=== PATIENT | female | born 1950 | race Caucasian/White ===

== ENCOUNTER 2020-10-04 12:58 | Outpatient (CLI) | payer MEDICARE, BC, SELFPAY ==
--- NOTE | 2020-10-04 | XR_ITS ---
WS: [id number] SCREENING DEXA SCAN [employer] CLINICAL INFORMATION: POST MENOPAUSE COMPARISON: July 20, 2018 FINDINGS: The L1-L4 bone mineral density measures 1.431 g/cm2. This corresponds to a T score score of 2.1 and Z score of 3.7. Left femoral neck bone mineral density measures 0.971 g/cm2. This corresponds to a T score of -0.3 an d Z score of 1.2. Right femoral neck bone mineral density measures 0.970 g/cm2. This corresponds to a T score -0.3of an d Z score of 1.2. Mean femoral neck bone mineral density measures 0.970 g/cm2. This corresponds to a T score of -0.3 an d Z score of 1.2. XR/XR DEXA axial skeleton* [id number] IMPRESSION: Normal bone mineralization. Patient's FRAX calculated 10 year probability for major osteoporotic fracture i s 23.8 % and osteoporotic hip fracture is 5.7%.
--- NOTE | 2020-10-04 13:07 | MM_ITS ---
WS: [id number] BILATERAL SCREENING DIGITAL MAMMOGRAM WITH CAD HISTORY: SCREENING COMPARISON: 08/13/2019 and 06/05/2018. Bilateral CC and MLO views submitted. Computer aided detection analyzed. Breast composition: There are scattered areas of fibroglandular density. No suspicious masses, microc alcifications or architectural distortion. MM/[place] [id number] IMPRESSION: BI-RADS: 1-Negative FOLLOW UP: 1 Year Follow-up
== END 2020-10-04 12:59 | disposition home or self-care (01) ==
LOC: RADSHAW 13:06
PROVIDERS: PCP Family Medicine; Visit Provider Family Medicine
DX: Z12.31 Encounter for screening mammogram for malignant neoplasm of breast (principal); Z78.0 Asymptomatic menopausal state
CPT/HCPCS: 77067; 77080

== ENCOUNTER 2022-01-10 10:09 | Outpatient (CLI) | payer MEDICARE, BC, SELFPAY ==
--- NOTE | 2022-01-10 10:53 | MM_ITS ---
WS: [id number] Bilateral screening 3D tomosynthesis digital mammogram, 01/10/2022 Clinical Data: SCREENING Comparison: 10/04/2020, 08/13/2019, 06/05/2018, 05/16/2017, 02/28/2016, 07/18/2014, 07/12/2013, 06/18/2011, . Findings: The breast parenchymal pattern shows fibroglandular tissue. No spiculated masses or clustered calcif ications are seen. There are no secondary signs of carcinoma. There is a mole marker on the right blayne ast. There are small lymph nodes in both axilla. MM/[place] [id number] Impression: 1. Negative bilateral mammogram unchanged. 2. Recommend annual screening mammograms. BIRADS: 1-Negative FOLLOW UP: 1 Year Follow-up The CAD color checker was used.
== END 2022-01-10 10:10 | disposition home or self-care (01) ==
LOC: RADSHAW 10:10
PROVIDERS: PCP Family Medicine; Visit Provider Family Medicine
DX: Z12.31 Encounter for screening mammogram for malignant neoplasm of breast (principal)
CPT/HCPCS: 77063; 77067

== ENCOUNTER 2022-12-11 12:31 | Outpatient (CLI) | payer MEDICARE, BC, SELFPAY ==
--- NOTE | 2022-12-11 12:43 | XR_ITS ---
WS: [email or web address] DEXA (DUAL ENERGY X-RAY ABSORPTIOMETRY) Bone mineral density was performed using a [employer] machine. HISTORY: POSTMENOPAUSAL COMPARISON: 10/04/2020 Lumbar spine BMD (L1-L4): 1.334 g/cm2 T score: 1.3 Z score: 2.8 Total hip BMD: Left: 0.974 g/cm2. T score: -0.3 Z score: 1.2 Right: 0.996 g/cm2. T score: -0.1 Z score: 1.4 10 year probability of a major osteoporotic fracture is 22.3%. Compared to the prior study from 10/04/2020. Lumbar spine bone mineral density has decreased by 2.6%. Bilateral hips bone mineral density has increased by 1.5%. XR/XR DEXA axial skeleton* [id number] IMPRESSION: NORMAL BONE MINERAL DENSITY based upon the WHO classification for females. Significant decrease in bone mineral density within the lumbar spine since the prior study.
== END 2022-12-11 12:32 | disposition home or self-care (01) ==
LOC: RAD 12:35
PROVIDERS: PCP Family Medicine; Visit Provider Family Medicine
DX: Z78.0 Asymptomatic menopausal state (principal)
CPT/HCPCS: 77080

== ENCOUNTER 2024-03-24 08:53 | Outpatient (CLI) | payer MEDICARE, SELFPAY ==
--- NOTE | 2024-03-24 09:00 | MM_ITS ---
WS: [email or web address] BILATERAL SCREENING DIGITAL TOMOSYNTHESIS MAMMOGRAM WITH CAD HISTORY: SCREENING COMPARISON: 01/10/2022, 10/04/2020 Bilateral CC and MLO views with tomosynthesis and synthetic mammography submitted. Computer aided det ection analyzed. Breast composition: There are scattered areas of fibroglandular density. No suspicious masses, microc alcifications or architectural distortion. MM/[place] [id number] IMPRESSION: BI-RADS: 1-Negative FOLLOW UP: 1 Year Follow-up
== END 2024-03-24 08:54 | disposition home or self-care (01) ==
LOC: RAD 08:53
PROVIDERS: PCP Family Medicine; Visit Provider Family Medicine
DX: L40.0 Psoriasis vulgaris (principal); L21.8 Other seborrheic dermatitis; D22.61 Melanocytic nevi of right upper limb, including shoulder; Z12.31 Encounter for screening mammogram for malignant neoplasm of breast; R92.323 Mammographic fibroglandular density, bilateral breasts
CPT/HCPCS: 77063; 77067; 99204

== ENCOUNTER → 2024-04-21 09:10 | Outpatient (BNVA) | payer MEDICARE, SELFPAY | PROVIDERS: PCP Family Medicine; Visit Provider Nurse Practitioner Family | DX: L40.0 Psoriasis vulgaris (principal); L21.8 Other seborrheic dermatitis; B07.8 Other viral warts | CPT/HCPCS: 17110; 99214 ==

== ENCOUNTER → 2024-05-12 09:10 | Outpatient (BNVA) | payer MEDICARE, SELFPAY | PROVIDERS: PCP Family Medicine; Visit Provider Nurse Practitioner Family | DX: B07.8 Other viral warts (principal); D22.62 Melanocytic nevi of left upper limb, including shoulder; L81.4 Other melanin hyperpigmentation | CPT/HCPCS: 17110; 99213 ==

== ENCOUNTER → 2024-06-02 09:29 | Outpatient (BNVA) | payer MEDICARE, SELFPAY | PROVIDERS: PCP Family Medicine; Visit Provider Nurse Practitioner Family | DX: B07.8 Other viral warts (principal); D22.62 Melanocytic nevi of left upper limb, including shoulder; L81.4 Other melanin hyperpigmentation | CPT/HCPCS: 17110; 99213 ==

== ENCOUNTER 2025-04-06 12:50 | Outpatient (CLI) | payer MEDICARE, SELFPAY ==
--- NOTE | 2025-04-06 12:58 | MM_ITS ---
WS: [email or web address] BILATERAL 3D TOMOSYNTHESIS DIGITAL SCREENING MAMMOGRAPHY WITH CAD CLINICAL INFORMATION: SCREEN HISTORY: Screening mammogram. No current complaints. COMPARISON: 2023 TECHNIQUE: Bilateral CC and MLO views. FINDINGS: Scattered fibroglandular densities bilaterally. No suspicious focal mass, asymmetry, calcifications, or architectural distortion. No evidence of malignancy. MM/MM scr BI tomosynthesis [id number] IMPRESSION: DENSITY: There are scattered areas of fibroglandular density. BI-RADS: 1 - Negative. FOLLOW UP: 1 Year Follow-up Recommend return to annual screening mammography.
--- NOTE | 2025-04-06 13:02 | XR_ITS ---
WS: [email or web address] SCREENING DEXA SCAN [email or web address] CLINICAL INFORMATION: POSTMENOPAUSAL COMPARISON: 2022 FINDINGS: The L1-L4 bone mineral density measures 1.297 g/cm2. This corresponds to a T score score of 1.0 and Z score of 2.7. Left femoral neck bone mineral density measures 0.967 g/cm2. This corresponds to a T score of -0.3 and Z score of 1.4. Right femoral neck bone mineral density measures 0.976 g/cm2. This corresponds to a T score -0.2of and Z score of 1.5. Mean femoral neck bone mineral density measures 0.972 g/cm2. This corresponds to a T score of -0.3 and Z score of 1.5. XR/XR DEXA axial skeleton* [id number] IMPRESSION: Normal bone mineralization. Patient's FRAX calculated 10 year probability for major osteoporotic fracture i s 10.9% and osteoporotic hip fracture is 2.0%. Bone density lumbar spine decreased -2.8% Bone density femoral necks decreased -1.3%
== END 2025-04-06 12:51 | disposition home or self-care (01) ==
LOC: RAD 12:55
PROVIDERS: PCP Family Medicine; Visit Provider Family Medicine
DX: Z12.31 Encounter for screening mammogram for malignant neoplasm of breast (principal); Z78.0 Asymptomatic menopausal state; Z13.820 Encounter for screening for osteoporosis
CPT/HCPCS: 77063; 77067; 77080

== ENCOUNTER → 2025-06-23 09:54 | Outpatient (BNVA) | payer MEDICARE, SELFPAY | PROVIDERS: PCP Family Medicine; Referring Provider Family Medicine; Visit Provider Nurse Practitioner Family | DX: M54.2 Cervicalgia (principal) | CPT/HCPCS: 99214 ==

== ENCOUNTER → 2025-06-30 08:46 | Outpatient (BNVA) | payer MEDICARE, SELFPAY | PROVIDERS: PCP Family Medicine; Visit Provider Orthopaedic Surgery | DX: M40.202 Unspecified kyphosis, cervical region (principal) | CPT/HCPCS: 72050; 99203 ==

== ENCOUNTER 2025-07-06 13:26 | Outpatient (CLI) | payer MEDICARE, SELFPAY ==
--- NOTE | 2025-07-06 13:33 | MR_ITS ---
WS: [email or web address] MRI CERVICAL SPINE NONCONTRAST HISTORY: CERVICAL DISC DZ COMPARISON: None available. Technique: Multiplanar, multisequence noncontrast imaging of the cervical spine. Slight reversal of the normal cervical lordosis centered at C4. Disc spaces are narrowed and desiccated with osteophytes and facet joint arthritis at multiple levels. No marrow edema or acute fracture. No signal abnormality in the cervical cord. Signal within the cervical cord is normal. Visualized posterior fossa is unremarkable. Craniocervical junction, C1 and C2 relationship, odontoid process and soft tissues are normal. C2-C3: Normal. C3-C4: Small LEFT foraminal osteophytes resulting in mild LEFT foraminal stenosis. Mild facet arthritis. C4-C5: Disc bulging with osteophytic ridging and facet arthritis. Moderate central and bilateral foraminal stenosis. C5-C6: Diffuse osteophytic ridging with a central disc protrusion. Bilateral facet joint arthritis. Moderate to severe central and bilateral foraminal stenosis. C6-C7: Diffuse osteophytic ridging and disc bulging with small foraminal osteophytes. Mild facet arthritis. Moderate central and bilateral foraminal stenosis. C7-T1: Normal. Paraspinal soft tissue are normal. MR/MR cervical spin wo con* [id number] IMPRESSION: 1. Degenerative disc disease and osteophytosis throughout the cervical spine. 2. Moderate to severe central and bilateral foraminal stenosis at C5-6. 3. Moderate central and bilateral foraminal stenosis at C4-5 and C6-7. 4. Mild LEFT foraminal stenosis due to osteophytes at C3-4.
== END 2025-07-06 13:27 | disposition home or self-care (01) ==
LOC: RAD 13:28
PROVIDERS: PCP Family Medicine; Visit Provider Family Medicine
DX: M50.30 Other cervical disc degeneration, unspecified cervical region (principal); M25.78 Osteophyte, vertebrae; M47.812 Spondylosis without myelopathy or radiculopathy, cervical region; M48.02 Spinal stenosis, cervical region
CPT/HCPCS: 72141

== ENCOUNTER → 2025-07-07 10:01 | Outpatient (BNVA) | payer MEDICARE, SELFPAY | PROVIDERS: PCP Family Medicine; Visit Provider Orthopaedic Surgery | DX: M48.02 Spinal stenosis, cervical region (principal); Z09 Encounter for follow-up examination after completed treatment for conditions other than malignant neoplasm | CPT/HCPCS: 99213 ==

== ENCOUNTER → 2025-07-12 09:54 | Outpatient (BNVA) | payer MEDICARE, SELFPAY | PROVIDERS: PCP Family Medicine; Visit Provider Nurse Practitioner Family | DX: M54.2 Cervicalgia (principal) | CPT/HCPCS: 99214 ==

== ENCOUNTER → 2025-07-21 07:43 | Outpatient (BNVA) | payer MEDICARE, SELFPAY | PROVIDERS: PCP Family Medicine; Visit Provider Nurse Practitioner Family | DX: M79.18 Myalgia, other site (principal); M54.2 Cervicalgia | CPT/HCPCS: 20553; 99214; J1010; J3490 ==

== ENCOUNTER → 2025-08-04 07:55 | Outpatient (BNVA) | payer MEDICARE, SELFPAY | PROVIDERS: PCP Family Medicine; Visit Provider Nurse Practitioner Family | DX: M54.2 Cervicalgia (principal) | CPT/HCPCS: 99214 ==

== ENCOUNTER → 2025-09-15 07:51 | Outpatient (BNVA) | payer MEDICARE, SELFPAY | PROVIDERS: PCP Family Medicine; Visit Provider Nurse Practitioner Family | DX: M54.2 Cervicalgia (principal) | CPT/HCPCS: 99214 ==